=== PATIENT | male | born 1995 | race Caucasian/White ===

== ENCOUNTER → 2019-02-13 | Outpatient (CLI) | payer OTHER ==
--- NOTE | 2019-02-23 11:10 | REPPI ---
Seven views lumbar spine: 02/13/2019. Indication: Low back pain. Comparison: None. Findings: There is no acute fracture, subluxation or dislocation. There is minimal anterolisthesis of L5 on S1. Mild straightening of the lumbar lordosis is present. There are no lytic or blastic lesions within the visualized osseous structures. The neural foramina appear patent. Impression: No acute osseous injury of the lumbar spine. Electronically Signed by Asim Escobar DO 02/13/2019 01:06 P
== END ==
LOC: M PLALAB 12:03
PROVIDERS: ATTEND Family Medicine
DX: M54.40 Lumbago with sciatica, unspecified side (principal)

== ENCOUNTER → 2020-05-18 | Outpatient (REF) | payer OTHER ==
[2020-05-18 14:27] LABS: FREE T4 0.61 NG/DL (0.76-1.46); THYROID STIMULATING HORMONE 3.16 uIU/ML (0.358-3.740)
== END ==
LOC: M SFHCPLAZ 10:46
PROVIDERS: ATTEND Family Medicine
DX: F41.9 Anxiety disorder, unspecified (principal)

== ENCOUNTER → 2020-09-15 | Outpatient (CLI) | payer OTHER ==
--- NOTE | 2020-09-16 01:10 | REP ---
INDICATION: CONTUSION OF LEFT FRONT WALL OF THORAX, INITIAL ENCOUNTER COMPARISON: None. TECHNIQUE: Frontal view of the chest with multiple views of the left hemithorax. Five total views. FINDINGS: Frontal view of the chest demonstrates no acute cardiopulmonary process, contusion, effusion, or pneumothorax. Multiple views of the left hemithorax demonstrates no acute rib fracture/injury or pathology. IMPRESSION: Normal rib series. <Electronically signed by Jp Givens > 09/16/20 [id number]
== END ==
LOC: M RAD 17:25
PROVIDERS: ATTEND Physician Assistant
DX: S20.212A Contusion of left front wall of thorax, initial encounter (principal); X58.XXXA Exposure to other specified factors, initial encounter; Y92.89 Other specified places as the place of occurrence of the external cause; Y93.89 Activity, other specified; Y99.8 Other external cause status